=== PATIENT | male | born 1970 | race Caucasian/White ===

== ENCOUNTER 2023-07-06 07:26 | Emergency (ER) | payer OTHER, SELFPAY ==
[2023-07-06] VITALS (7 sets, daily range): BP systolic 101–119; BP diastolic 56–73; PULSE 75–88; RESP 16; TEMP 36.8; O2SAT 96; BMI 24.5
--- NOTE | ~2023-07-06 | XR_ITS ---
EXAMINATION: XR CHEST CLINICAL INFORMATION: Cholecystectomy COMPARISON: None available. TECHNIQUE: Frontal view of the chest was obtained. FINDINGS: Cardiac silhouette is normal in size. The lungs are well aerated. There is no lobar consolidation. No pleural effusion or pneumothorax. XR/XR chest 1V IMPRESSION: No acute pulmonary pathology.
--- NOTE | 2023-07-06 07:33 | ED_ITS ---
HPI - Syncope General Chief Complaint: Syncope Stated Complaint: SYCNOPAL EP AT WORK Time Seen by Provider: 07/06/23 07:31 Source: patient, EMS, RN notes reviewed and old records reviewed Mode of arrival: EMS History of Present Illness HPI narrative: 53-year-old male with no significant past medical history presenting to the ED via EMS from work s/p syncopal episode [employer]. 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 Denies seizure history or epilepsy. Admits to feeling generally under the weather for the past couple days, and nausea at present. Denies known fever, headache, vision change/loss, vomiting, chest pain/shortness of breath, abdominal pain, recent travel MD complaint: loss of consciousness and felt faint Related Data Allergies Allergy/AdvReac Type Severity Reaction Status Date / Time No Known Allergies Allergy Verified 07/06/23 07:39 Review of Systems 2 Review of Systems: Constitutional: No Fever, No Chills, + Fatigue, No Malaise ENT/Mouth: No Ear Pain, No Nasal Congestion, No sore throat, No Rhinorrhea, No Swallowing Difficulty Eyes: No Eye Pain, No Swelling, No Redness, No Vision Changes Cardiovascular: No Chest Pain, No SOB, No Edema, No Palpitations Respiratory: No Cough, No Sputum, No Dyspnea Gastrointestinal: + Nausea, No Vomiting, No Diarrhea, No Constipation, No Abdominal pain Genitourinary: No Dysuria, No Urinary Frequency, No Hematuria, No Urinary Incontinence/retention, No Flank Pain Musculoskeletal: No joint pain, No Myalgias, No Joint Swelling Skin: No Skin Lesions, No rash Neuro: No Weakness, No Numbness, + Paresthesias, + Loss of Consciousness, + lightheaded, No Headache Yes all other systems are reviewed and are negative Constitutional: Constitutional: Reports as per HPI Neurologic: Denies Abnormal speech present [facility] Past Medical History Attestation statement: The following information was validated with the patient. Source: old records reviewed Social History Social History Smoked in Last 30 Days: No Advance Directives: No Physical Exam 2 Vital Signs: Vital Signs: Last Vital Signs Temp 98.2 F 07/06/23 07:35 Pulse 80 07/06/23 11:10 Resp 16 07/06/23 07:41 BP 106/70 07/06/23 11:11 Pulse Ox 96 07/06/23 07:35 O2 Del Method Room Air 07/06/23 07:35 BMI result Body Mass Index 24.5 Const: Other: Pale, diaphoretic General: cooperative, no acute distress and alert O rientation/consciousness: patient oriented x3 Limitations: no limitations HEENT: Head: Yes normal to inspection and Yes atraumatic Ears: hearing grossly normal bilaterally General nose exam: Normal external nose present Face and sinus: Yes normal facial exam Throat: Yes posterior oropharynx normal and Yes uvula midline Eyes: General: appearance normal, both eyes and all related structures EOM: EOMs intact bilaterally Neck: Neck: Yes normal visual inspection and Yes no meningeal signs Resp: Effort & Inspection: normal respiratory effort and no respiratory distress Auscultation: clear to auscultation bilaterally, no rales, no rhonchi and no wheezes Cardio: Rate: regular rate Heart sounds: S1 normal heart sound present and S2 normal heart sound present GI: Inspection: Yes normal to inspection Palpation (GI): Soft to palpation, nontender, no guarding and not rigid : General: Yes no CVA tenderness Back/Spine/Pelvis: Back: no CVA tenderness Skin: Rashes: no rashes Wounds: no wounds Neuro: General: patient oriented x3, gait normal, tone normal, moves all extremities, no meningeal signs, no focal motor deficits and CN's II-XI intact bilaterally Cranial nerves: Yes CN's II-XII intact bilaterally and Yes Bilaterally intact EOM present Cognition (Neuro): normal cognition Speech: No Abnormal speech present Gait exam (Neuro): Normal gait present Motor exam (neuro): 5/5 motor strength present throughout, Pronator motor function not present and no tremor noted Coordination: [id number] test normal R omberg Test: Negative Extrem: General: Yes normal to inspection and Yes no pedal edema Course Course Course Narrative: -0886--no leukocytosis. Initial troponin negative > will obtain 3 hour repeat -orthostatic vital signs negative XR chest 1V IMPRESSION: No acute pulmonary pathology. -influenza a positive -1112--troponin x2 negative. ACS unlikely Results discussed with patient including worrisome signs and symptoms and strict return precautions, and when to return to the emergency department. They verbalized understanding and feel safe for discharge at this time. Medications Administered Discontinued Medications Generic Name Dose Route Start Last Admin Trade Name Negro PRN Reason Stop Dose Admin Sodium Chloride 1,000 mls @ 999 mls/hr 07/06/23 07:45 07/06/23 08:04 Ns IV 07/06/23 08:45 999 mls/hr .Q1H1M JACINTO Administration Ondansetron HCl 4 mg 07/06/23 09:06 07/06/23 09:35 Ondansetron Hcl 4 Mg/2 Ml Vial IVPUSH 07/06/23 09:07 4 mg ONCE ONE Administration Medical Decision Making Medical Decision Making MDM Narrative: 53-year-old male with no significant past medical history presenting to the ED via EMS from work s/p syncopal episode [employer]. 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 On exam vital signs stable, in NAD, pale/diaphoretic, exam nonfocal, lungs CTA. Concern for syncope vs ? seizure although no reported tongue biting/incontinence or postictal state. Concern for viral illness vs dehydration/metabolic abnormalities vs ACS. Lower suspicion for PE (without SOB/tachycardia/tachypnea or hypoxia), CVA/TIA Plan: EKG, labs, UA, CXR, orthostatics, IVF, re-evaluate Please refer to course for remaining clinical decision making, interpretation of labs/imaging results, and discussions with consultants and/or family members. Differential Diagnosis Differential Diagnoses: The differential diagnosis associated with the presentation includes As above Admission/Observation Consideration of admission/observation: Escalation of care including admission/observation considered Lab Data [facility] Lab Attestation statement: I reviewed the patient's lab results. 07/06/23 07:57 07/06/23 07:57 Labs: Lab Results 07/06/23 07/06/23 07/06/23 Range/Units 07:57 10:30 10:33 WBC 5.1 (4.8-10.8) X10*3/uL RBC 5.17 (4.60-5.80) X10*6/uL Hgb 14.7 (14.0-18.0) g/dl Hct 44.4 (42.0-52.0) % MCV 85.9 (80.0-98.0) fL MCH 28.4 (27.0-33.0) pg MCHC 33.1 (31.0-36.0) g/dl RDW 13.4 (11.0-16.0) % Plt Count 273 (160-400) X10*3/uL MPV 9.8 (9.4-12.4) fL Immature Gran % (Auto) 0.2 (0.0-0.4) % Neut % (Auto) 80.6 H (45-73) % Lymph % (Auto) 8.3 L (20-40) % [place] % (Auto) 8.1 (2-11) % Eos % (Auto) 2.2 (0-4) % Baso % (Auto) 0.6 (0-2) % Lymph # (Auto) 0.4 L (1.2-4.9) X10*3/uL [place] # (Auto) 0.4 (0.1-1.2) X10*3/uL Eos # (Auto) 0.1 (0.0-0.4) X10*3/uL Baso # (Auto) 0.0 (0.0-0.2) X10*3/uL Abs Immat Gran (auto) 0.01 (0.00-0.03) X10*3/uL Absolute Neuts (auto) 4.1 (2.0-8.3) x10*3/uL Absolute Nucleated RBC 0.000 (0.0-0.012) X10*3/uL Nucleated RBC % (auto) 0.0 (0.0-0.2) /100WBC PT 12.9 (11.1-13.3) SEC INR 1.1 (0.9-1.1) Sodium 136 (135-145) mmol/L Potassium 3.8 (3.3-5.1) mmol/L Chloride 102 (96-108) mmol/L Carbon Dioxide 22 (22-29) mmol/L Anion Gap 16 (12-20) BUN 11 (9-16) mg/dL Creatinine 1.04 (0.5-1.4) mg/dL Estim Creat Clear Calc 83.0 Estimated GFR > 60 Random Glucose 152 H (60-115) mg/dL Lactic Acid 1.2 (0.5-2.0) mmol/L Calcium 8.9 (8.4-10.2) mg/dL Magnesium 1.8 (1.6-2.6) mg/dL Total Bilirubin 0.9 (0.0-1.0) mg/dL Direct Bilirubin 0.3 (0.0-0.5) mg/dL AST 16 (5-37) U/L ALT 19 (0-40) U/L Alkaline Phosphatase 61 (39-117) U/L Troponin I High Sens < 2.7 < 2.7 (<3.5-35.0) ng/L B-Natriuretic Peptide 37 (<100) pg/mL Total Protein 7.0 (6.5-8.0) g/dL Albumin 4.0 (3.5-5.0) g/dL Urine Color Yellow Urine Appearance Clear Urine pH 6.5 (5.0-9.0) Ur Specific [place] 1.020 (1.005-1.025) Urine Protein Trace (Neg-Trace) mg/dL Urine Glucose (UA) Negative (Negative) mg/dL Urine Ketones 15 (Negative) mg/dL Urine Blood Negative (Negative) Urine Nitrite Negative (Negative) Ur Leukocyte Esterase Negative (Negative) Influenza Type A (PCR) POSITIVE A (Negative) Influenza Type B (PCR) NEGATIVE (Negative) RSV RNA Qual (PCR) NEGATIVE (Negative) SARS-CoV-2 RNA (RT-PCR) NEGATIVE (Negative) Independent Interpretation I performed an independent interpretation of an: EKG (My interpretation EKG normal sinus rhythm rate of 81. QRS 116. QTC 429. no STEMI ) Radiology Impression Discussion of test interpretation with radiology: I have reviewed the radiologist's reading. Independent Historian Clinical information obtained from an independent historian. History obtained from or confirmed by: EMS External Record Review External record reviewed: Inpatient record, Office record, Outpatient record, Prior outpatient labs, Prior outpatient radiology, Primary care record and Outside ED record Tests considered The following testing was considered but not selected: As above Prescription Management I considered prescription management with: Pain Medication Discharge Plan Discharge Clinical Impression: Syncope, Influenza A Patient Disposition: Home, Self-Care Instructions: Syncope (DC), Influenza (DC) Additional Instructions: You have the flu. Make sure you stay hydrated. Change positions slowly Take Tylenol and Motrin as needed Please have close follow-up with your doctor if you feel like you are going to pass out again, do faint please return to the ED immediately If you develop chest pain, shortness of breath, fever unresolved with medications return to the ED. Referrals: Kenneth Prince MD [Primary Care Provider] - 3 days Stand Alone Forms: Work/School Release
--- NOTE | 2023-07-06 07:35 | ECG_ITS ---
Test Reason : syncope Blood Pressure : / mmHG Vent. Rate : 081 BPM Atrial Rate : 081 BPM P-R Int : 154 ms QRS Dur : 116 ms QT Int : 370 ms P-R-T Axes : 012 072 -05 degrees QTc Int : 429 ms Normal sinus rhythm Normal EKG No previous ECGs available Referred By: Ирина Moeller Electronically Signed By:CONNIE SPENCE
[2023-07-06] MEDS: 0.9 % Sodium Chloride 1,000 ML 999 ML IV (08:04)
[2023-07-06 08:05] LABS: MANUAL DIFF FLAG NO
[2023-07-06 08:07] LABS: Basophils Percent Auto 0.6 % (0-2); Eosinophils Absolute Auto 0.1 X10*3/uL (0.0-0.4); Eosinophils Percent Auto 2.2 % (0-4); Hematocrit 44.4 % (42.0-52.0); Hemoglobin 14.7 g/dl (14.0-18.0); Imm Gran Abs Auto 0.01 X10*3/uL (0.00-0.03); Imm Gran Pct Auto 0.2 % (0.0-0.4); Lymphocytes Absolute Auto 0.4 X10*3/uL (1.2-4.9); Lymphocytes Percent Auto 8.3 % (20-40); Mean Corpuscular HGB Conc 33.1 g/dl (31.0-36.0); Mean Corpuscular Hemoglobin 28.4 pg (27.0-33.0); Mean Corpuscular Volume 85.9 fL (80.0-98.0); Mean Platelet Volume 9.8 fL (9.4-12.4); Monocytes Absolute Auto 0.4 X10*3/uL (0.1-1.2); Monocytes Percent Auto 8.1 % (2-11); Neutrophils Absolute Auto 4.1 x10*3/uL (2.0-8.3); Neutrophils Percent Auto 80.6 % (45-73); Platelet Count 273 X10*3/uL (160-400); Red Blood Count 5.17 X10*6/uL (4.60-5.80); Red Cell Distribution Width 13.4 % (11.0-16.0); White Blood Count 5.1 X10*3/uL (4.8-10.8)
--- NOTE | 2023-07-06 08:14 | PC.NURSE ---
pt comes from work after syncopal episode and possible post ictal state? pt comes in pale and diaphoretic. symptoms resolved shortly after pt arrived. pt only complaining of nausea. provided with braulio-bag. pt changed over to hospital attire. 20G IV placed to left arm. labs drawn and sent. EKG obtained. pt placed on bedside monitor. pt provided with urinal for urine sample. pt son at bedside. call szymanski within pt reach. rr even/unlabored. plan of care ongoing.
--- NOTE | 2023-07-06 08:16 | PC.NURSE ---
fluids running and pt medicated per mar.
[2023-07-06 08:18] LABS: INTERNATIONAL NORM RATIO 1.1 (0.9-1.1); Prothrombin Time 12.9 SEC (11.1-13.3)
[2023-07-06 08:21] LABS: Alanine Aminotransferase 19 U/L (0-40); Alkaline Phosphatase 61 U/L (39-117); Anion Gap 16 (12-20); Aspartate Amino Transferase 16 U/L (5-37); Bilirubin Direct 0.3 mg/dL (0.0-0.5); Bilirubin Total 0.9 mg/dL (0.0-1.0); Blood Urea Nitrogen 11 mg/dL (9-16); Calcium 8.9 mg/dL (8.4-10.2); Carbon Dioxide 22 mmol/L (22-29); Chloride 102 mmol/L (96-108); Estimated Glomerular Filt Rate > 60; Glucose Random 152 mg/dL (60-115); Magnesium 1.8 mg/dL (1.6-2.6); Potassium 3.8 mmol/L (3.3-5.1); Sodium 136 mmol/L (135-145)
[2023-07-06 08:22] LABS: Lactic Acid 1.2 mmol/L (0.5-2.0)
[2023-07-06 08:27] LABS: B Type Natriuretic Peptide 37 pg/mL (<100)
[2023-07-06 08:30] LABS: Troponin-I High Sensitivity < 2.7 ng/L (<3.5-35.0)
[2023-07-06 08:43] LABS: Influenza A PCR POSITIVE (Negative); Influenza B PCR NEGATIVE (Negative); Resp Syncy Virus RNA Qual PCR NEGATIVE (Negative); SARS COV2 PCR INHOUSE NEGATIVE (Negative)
[2023-07-06] MEDS: ondansetron HCL 4 MG/2 ML VIAL IVPUSH (09:35)
[2023-07-06 10:41] LABS: Appearance Urine Clear; Color Urine Yellow; Glucose Urine UA Negative (Negative); Leukocyte Esterase Urine Negative (Negative); Nitrite Urine Negative (Negative); PH 6.5 (5.0-9.0); Urine Blood Negative (Negative); Urine Ketones 15 mg/dL (Negative); Urine Protein Trace mg/dL (Neg-Trace)
[2023-07-06 11:02] LABS: Troponin-I High Sensitivity < 2.7 ng/L (<3.5-35.0)
== END 2023-07-06 11:35 | disposition home or self-care (01) ==
PROVIDERS: Physician Assistant; Emergency Provider Emergency Medicine Emergency Medical Services; PCP Internal Medicine
DX: J10.1 Influenza due to other identified influenza virus with other respiratory manifestations (principal); R55 Syncope and collapse; Z11.52 Encounter for screening for COVID-19
CPT/HCPCS: 0241U; 36415; 71045; 80048; 80076; 81003; 83605; 83735; 83880; 84484; 85025; 85610; 93005; 96374; 99284; 99285; J2405

== ENCOUNTER → 2023-07-06 07:35 | Outpatient (BNV) | payer OTHER, SELFPAY | PROVIDERS: Emergency Provider Emergency Medicine Emergency Medical Services; PCP Internal Medicine; Visit Provider Internal Medicine | DX: R55 Syncope and collapse (principal) | CPT/HCPCS: 93010 ==